=== PATIENT | female | born 1980 | race Caucasian/White ===

== ENCOUNTER → 2017-02-23 | Outpatient (CLI) | payer OTHER | LOC: MW.CHFP 11:14 | PROVIDERS: ATTEND Family Medicine | DX: K21.9 Gastro-esophageal reflux disease without esophagitis (principal) | CPT/HCPCS: 87338 ==

== ENCOUNTER → 2017-02-26 | Outpatient (CLI) | payer OTHER ==
[2017-02-26 09:10] LABS: CHLORIDE,CL 108 mmol/L (98-110); SODIUM,NA 142 mmol/L (136-146)
== END ==
LOC: MW.CHFP 08:21
PROVIDERS: ATTEND Family Medicine
DX: O90.3 Peripartum cardiomyopathy (principal); L50.9 Urticaria, unspecified; K21.9 Gastro-esophageal reflux disease without esophagitis; Z86.32 Personal history of gestational diabetes
CPT/HCPCS: 36415; 80053; 80061; 83036; 83525; 84443; 85027; 86003